=== PATIENT | male | born 1980 | race Caucasian/White ===

== ENCOUNTER 2016-09-30 08:55 | Emergency (ER) | payer SELFPAY ==
[2016-09-30] MEDS ORDERED: EYE WASH BSS SOLN 1 APPLIC APP ONE (09:19)
[2016-09-30] MEDS ORDERED: FLUORESCEIN STRIP 1 MG/STRIP STRIP ONE (09:19)
[2016-09-30] MEDS ORDERED: TETRACAINE 0.5% OPHTH 15 ML BOTTLE ONE (09:19)
[2016-09-30] MEDS ORDERED: KETOROLAC 0.45% OPHTH 1 DROP/EACH DROPERETTE ONE (09:48)
[2016-09-30] MEDS ORDERED: GENTAMICIN 0.3% OPHTH OINTMENT 1 APPLIC APP ONE (09:48)
--- NOTE | 2016-09-30 10:02 | ER NURSING DOCUMENTATION ---
Nurse's Notes [facility] Name:Triston Ruvalcaba Age:36 yrs Sex:Male :1980 Arrival Date:09/30/2016 Time:08:55 Bed3 Private MD: Diagnosis:Conjunctivitis Presentation: 06 08:59 Acuity: PARK 4 rh 09:07 Presenting complaint: Patient states: CAMPING LAST 2 DAYS AND C/O EYE IRRITATION TO BOTH EYES. NOT SURE IF IT WAS CAMP SMOKE, LEAVING CONTACTS IN, OR RUBBING EYES WITH HIS DOGS FLEA MEDICINE. DENIES VISUAL CHANGE, PREFERS NOT TO DO EYE CHART NOW DUE TO SEVERE LIGHT SENSITIVITY. Transition of care: Camp. Notified ED Physician of patient's arrival and CC. 09:07 Method Of Arrival: Private Vehicle Triage Assessment: 09:13 General: Appears in no apparent distress, Behavior is anxious, cooperative. Pain: lc Complains of pain in right eye and left eye Pain At worst was 5 out of 10 on a pain scale. Quality of pain is described as burning. Neuro: Level of Consciousness is awake, alert, Oriented to person, place, time, event. Historical: - Allergies: No known drug Allergies; - Home Meds: 1. None - PMHx: None; - PSHx: None; - Tetanus: unknown. - Ebola Screening: : No symptoms or risks identified at this time. . - Immunization history: Flu Vaccine >1 year. - Social history: Smoking status: Patient states was never smoker of tobacco. Screenin:16 Infectious Disease Risk None. Abuse screen: Denies threats or abuse. Denies injuries lc from another. Nutritional screening: No deficits noted. Assessment: 09:16 See Triage Assessment done by same RN. Vital Signs: 09:14 BP 135 / 93; Pulse 76; Resp 16; Temp 98.2; Pulse Ox 93% on R/A; Weight 72.57 kg; Height lc 5 ft. 8 in. (172.72 cm); Pain 5/10; 09:59 Pain 1/10; lc 09:14 Body Mass Index 24.33 (72.57 kg, 172.72 cm) ED Course: 08:56 Patient arrived in ED. arc 08:59 Triage completed. rh 09:03 Jose Perkins MD is Attending Physician. tn 09:07 Green, Santa, RN is Primary Nurse. 09:16 Valuables Remains with patient Patient has correct armband on for positive lc identification. Bed in low position. Call light in reach. 09:34 Isma Bassett MD is Referral Physician. tn 09:56 Assist Provider Assist provider with eye exam of both eyes. using fluorescein stain, lc Performed by Jose Perkins MD Patient tolerated well. Administered Medications: 09:37 Drug: Tetracaine Drops 0.5 % 1 drops; Route: Ophthalmic; Site: both eyes; lc 09:54 Follow up: Response: Pain is decreased 09:37 Drug: Fluorescein Strip 1 strip; Route: Ophthalmic; Site: left eye; lc 09:55 Follow up: Response: No adverse reaction lc 09:38 Drug: Fluorescein Strip 1 strip; Route: Ophthalmic; Site: right eye; lc 09:55 Follow up: Response: No adverse reaction 09:38 Drug: Dacrose - Balanced Salt Soln Drops 1 application; Route: Ophthalmic; Site: both lc eyes; 09:56 Follow up: Response: No adverse reaction 09:38 Drug: ketorolac (PF) Dropperette 0.45 % 1 drops; Route: Ophthalmic; Site: both eyes; lc 09:56 Follow up: Response: Pain is decreased 09:52 Drug: Gentamicin Ointment 0.3 % 0.5 inches; Route: Ophthalmic; Site: both eyes; lc 09:56 Follow up: Response: No adverse reaction Outcome: 09:34 Discharge ordered by . tn 09:59 Discharged to home ambulatory. 09:59 Condition: stable 09:59 Discharge Assessment: Patient awake, alert and oriented x 3. No cognitive and/or functional deficits noted. Patient verbalized understanding of disposition instructions. 09:59 Discharge instructions given to patient, Instructed on discharge instructions, follow up and referral plans. medication usage, SEE [facility] MACHINE OPERATOR IF NOT IMPROVED IN 2 DAYS Demonstrated understanding of instructions, medications. 10:01 Patient left the ED. 10/01 17:18 Discharge F/U Call: Unable to reach: no answer st Signatures: Jewell Rodríguez RN Santa Mack RN RN lc Chew, Scott, MD MD sc Chew, Nanda, [facility], Agnieszka rh
--- NOTE | 2016-09-30 10:02 | ER PHYSICIAN DOCUMENTATION ---
Physician Documentation [facility] Name:Triston Ruvalcaba Age:36 yrs Sex:Male :1980 Arrival Date:09/30/2016 Time:08:55 Bed3 Private MD: Jose Noel Disposition: 09/30/16 09:34 Discharged to Home/Self Care. Impression: Conjunctivitis. - Condition is Good. - Discharge Instructions: CONJUNCTIVITIS Chemical - EYE EXPOSURE, Chemical. - Medical Reconciliation form form. - Follow up: Isma Bassett MD; When: 1 - 2 days; Reason: Worsening of condition. - Problem is new. - Symptoms have improved. HPI: 09/30 09:31 This 36 yrs old Male presents to ER via Private Vehicle with complaints of sc Eye Problem. 09:31 The patient is experiencing pain, redness, tearing. Onset: The symptom(s)/episode sc began/occurred yesterday. Duration: the symptoms are continuous. Aggravated by overnight contact use, tick repellant on fingers, smoky campfire. Associated signs and symptoms: Pertinent positives: None. Patient wears glasses, wears soft contacts. Historical: - Allergies: No known drug Allergies; - Home Meds: 1. None - PMHx: None; - PSHx: None; - Tetanus: unknown. - Ebola Screening: : No symptoms or risks identified at this time. . - Immunization history: Flu Vaccine >1 year. - Social history: Smoking status: Patient states was never smoker of tobacco. ROS: 09:32 Constitutional: Negative for fever, chills, and weight loss. sc Neck: Negative for injury, pain, and swelling. Cardiovascular: Negative for chest pain, palpitations, and edema. Respiratory: Negative for shortness of breath, cough, wheezing, and pleuritic chest pain. Skin: Negative for injury, rash, and discoloration. 09:32 Neuro: Negative for headache, weakness, numbness, tingling, and seizure. sc 09:32 Eyes: Positive for redness. Exam: 09:33 Visual Acuity: I have reviewed the nursing documentation. Visual acuity is within az normal limits. Constitutional: This is a well developed, well nourished patient who is awake, alert, and in no acute distress. Head/Face: Normocephalic, atraumatic. Skin: Warm, dry with normal turgor. Normal color with no rashes, no lesions, and no evidence of cellulitis. MS/ Extremity: Pulses equal, no cyanosis. Neurovascular intact. Full, normal range of motion, negative Homans's, calves equal bilaterally. 09:33 Neuro: Awake and alert, GCS 15, oriented to person, place, time, and situation. Cranial nerves II-XII grossly intact. Motor strength 5/5 in all extremities. Sensory grossly intact. Cerebellar exam normal. Normal gait. 09:33 Eyes: Periorbital structures: appear normal, Pupils: equal, round, and reactive to light and accomodation, Extraocular movements: intact throughout, Conjunctiva: injected, bilaterally, Corneas: are normal, a fluorescein strip employed to appreciate the findings, Sclera: no acute changes, Anterior chamber: normal, Lids and lashes: appear normal. Vital Signs: 09:14 BP 135 / 93; Pulse 76; Resp 16; Temp 98.2; Pulse Ox 93% on R/A; Weight 72.57 kg; Height lc 5 ft. 8 in. (172.72 cm); Pain 5/10; 09:59 Pain 1/10; lc 09:14 Body Mass Index 24.33 (72.57 kg, 172.72 cm) MDM: 09:04 Patient medically screened. az 09:33 Differential diagnosis: Chemical conjunctivitis in both eyes. Allergic conjunctivitis sc in Infectious conjunctivitis in. Data reviewed: vital signs, nurses notes, and as a result, I will discharge patient. Counseling: I had a detailed discussion with the patient and/or guardian regarding: the historical points, exam findings, and any diagnostic results supporting the discharge/admit diagnosis, the need for outpatient follow up, to return to the emergency department if symptoms worsen or persist or if there are any questions or concerns that arise at home. Dispensed Medications: 09:37 Drug: Tetracaine Drops 0.5 % 1 drops; Route: Ophthalmic; Site: both eyes; 09:54 Follow up: Response: Pain is decreased 09:37 Drug: Fluorescein Strip 1 strip; Route: Ophthalmic; Site: left eye; 09:55 Follow up: Response: No adverse reaction 09:38 Drug: Fluorescein Strip 1 strip; Route: Ophthalmic; Site: right eye; 09:55 Follow up: Response: No adverse reaction 09:38 Drug: Dacrose - Balanced Salt Soln Drops 1 application; Route: Ophthalmic; Site: both lc eyes; 09:56 Follow up: Response: No adverse reaction 09:38 Drug: ketorolac (PF) Dropperette 0.45 % 1 drops; Route: Ophthalmic; Site: both eyes; lc 09:56 Follow up: Response: Pain is decreased 09:52 Drug: Gentamicin Ointment 0.3 % 0.5 inches; Route: Ophthalmic; Site: both eyes; 09:56 Follow up: Response: No adverse reaction Signatures: Santa Green RN RN Jose Aponte MD MD az
== END 2016-09-30 10:02 | disposition home or self-care (01) ==
LOC: ER 08:55
DX: H10.33 Unspecified acute conjunctivitis, bilateral (principal)
CPT/HCPCS: 99283